=== PATIENT | male | born 1950 | race Caucasian/White ===

== ENCOUNTER 2016-03-22 08:00 | Inpatient (IN) | payer OTHER ==
[2016-04-15 09:44] VITALS: BMI 33.6
[2016-04-22] MEDS ORDERED: MELOXICAM 7.5 MG TAB PO ONE (05:00)
[2016-04-22] MEDS ORDERED: ACETAMINOPHEN TAB 500 MG TAB PO ONE (05:00)
[2016-04-22] MEDS ORDERED: ONDANSETRON 4 MG/2 ML VIAL IVP ONE (05:00)
[2016-04-22] MEDS ORDERED: TRANEXAMIC ACID 1,000 MG in SODIUM CHLORIDE 0.9% 100 ML IVPB ONE (05:00)
[2016-04-22] MEDS ORDERED: ceFAZolin 2 GM in SODIUM CHLORIDE 0.9% 100 ML IVPB ONE (05:00)
[2016-04-22] MEDS ORDERED: MIDAZOLAM 2 MG/2 ML VIAL IV PRN (05:56)
[2016-04-22] MEDS ORDERED: SCOPOLAMINE 1.5MG/72HR PATCH TRANSDERM ONE (05:56)
[2016-04-22] MEDS ORDERED: DEXAMETHASONE SOD PHOSPHATE 10 MG/ML 1 ML VIAL IV ONE (05:56)
[2016-04-22] MEDS ORDERED: HYDROmorphone 1 MG/ML 1 ML SYRINGE IVP PRN ×4 (05:56→10:22)
[2016-04-22 06:40] VITALS: RESP 16
[2016-04-22] MEDS: LACTATED RINGERS 1,000 ML IV SCH ×4 (07:18→20:00)
[2016-04-22] MEDS ORDERED: LIDOCAINE 1% 20 ML VIAL (10MG/ML) FOR IV START INTRADERMA ONE (07:19)
[2016-04-22] MEDS ORDERED: PROPOFOL 10 MG/ML 20 ML VIAL IV ONE (07:40)
[2016-04-22] MEDS ORDERED: ePHEDrine 50 MG/ML 1 ML AMP ONE (07:40)
[2016-04-22] MEDS ORDERED: NEOSTIGMINE 1 MG/ML 10 ML VIAL ONE (07:40)
[2016-04-22] MEDS ORDERED: SODIUM CHLORIDE 0.9% 100 ML BAG ONE (07:40)
[2016-04-22] MEDS ORDERED: TRANEXAMIC ACID 1,000 MG/10 ML VIAL ONE (07:40)
[2016-04-22] MEDS ORDERED: fentaNYL (PF) 50 MCG/ML 2 ML AMP ONE (07:40)
[2016-04-22] MEDS ORDERED: PHENYLEPHRINE-0.9% NACL SYG 1 MG/10 ML SYRINGE ONE (07:40)
[2016-04-22] MEDS ORDERED: ROCURONIUM BROMIDE 10 MG/ML 10 ML VIAL IV ONE (07:40)
[2016-04-22] MEDS ORDERED: ATROPINE SULFATE 0.4 MG/ML 1 ML VIAL ONE (07:40)
[2016-04-22] MEDS ORDERED: MIDAZOLAM 2 MG/2 ML VIAL ONE (07:40)
[2016-04-22] MEDS ORDERED: HYDROmorphone (PF) 1 MG/ML ONE (07:40)
[2016-04-22] MEDS ORDERED: GLYCOPYRROLATE 0.2 MG/ML 2 ML VIAL ONE (07:40)
[2016-04-22] MEDS ORDERED: LIDOCAINE 1% INJ 10MG/ML (20 ML MDV) ONE (07:40)
[2016-04-22] MEDS ORDERED: ceFAZolin 3,000 MG in SODIUM CHLORIDE 0.9% IRRIGATIO 3,000 ML IRRIGATION ONE (08:26)
[2016-04-22] MEDS: ROPIVACAINE 246.25 MG, EPINEPHrine 0.5 MG, KETOROLAC 30 MG, cloNIDine HCL/PF 80 MCG, WA... MISCELLANE ONE ×10 (08:32→09:34)
[2016-04-22] MEDS ORDERED: LACTATED RINGERS 1,000 ML IV ONE ×2 (08:33→10:00)
[2016-04-22] MEDS ORDERED: ROPIVACAINE 1,100 MG, SODIUM CHLORIDE 0.9% 330 ML MISCELLANE PRN ×2 (09:44)
--- NOTE | 2016-04-22 09:46 | P.ONQ ---
Anesthesiology Proc Note - PNB - Peripheral Nerve Block Performed Left Adductor Canal Indication: Acute Post-Operative Pain, Requested by physician (lisa) Sedation Type: Sedate with meaningful contact maintained Preparation: Sterile Dressing Position: Supine Catheter: Indwelling Needle Types: On-Q Needle Size: 100mm (4") Needle Gauge: 20 Technique: Ultrasound Injectate: 0.5% Ropivacaine (see comment for volume) (22cc) Blood Aspirated: No Pain Paresthesia on Injection Noted: No Resistance on Injection: Normal
[2016-04-22] MEDS ORDERED: hydrOXYzine PAMOATE 25 MG CAP PO PRN (10:22)
[2016-04-22] MEDS ORDERED: BISACODYL 10 MG SUPP RECTAL PRN (10:22)
[2016-04-22] MEDS ORDERED: NA PHOS,M-B/NA PHOS,DI-BA 133 ML ENEMA RECTAL PRN (10:22)
[2016-04-22] MEDS ORDERED: ACETAMINOPHEN TAB 325 MG TAB PO PRN (10:22)
[2016-04-22] MEDS ORDERED: NALOXONE 0.4 MG/ML 1 ML VIAL IV PRN (10:22)
[2016-04-22] MEDS ORDERED: HYDROcodone/APAP 5-325MG 1 EACH TAB PO PRN (10:22)
[2016-04-22] MEDS ORDERED: ONDANSETRON 4 MG/2 ML VIAL IVP PRN (10:22)
[2016-04-22] MEDS ORDERED: MAGNESIUM HYDROXIDE 2,400 MG/10 ML CUP PO PRN (10:22)
--- NOTE | 2016-04-22 11:18 | XR ---
EXAMINATION TYPE: XR knee limited LT DATE OF EXAM: 04/22/2016 11:00 AM COMPARISON: NONE HISTORY: Post op FINDINGS: There is a prosthetic knee in near anatomic alignment. There is soft tissue edema and emphysema. IMPRESSION: 1. Postoperative change. Appears in near-anatomic alignment
[2016-04-22] MEDS: HYDROcodone/APAP 5-325MG 1 EACH TAB PO PRN ×2 (15:57→21:57)
--- NOTE | 2016-04-22 16:22 | P.OP ---
Date of Procedure: 04/22/16 Procedure(s) Performed: PREOPERATIVE DIAGNOSIS: 1. Left knee severe osteoarthritis with genu varum 2. Previous surgery with retained hardware (2 plastic buttons, ligament augmentation device and 4 saran) POSTOPERATIVE DIAGNOSIS: Left knee severe osteoarthritis with genu varum 2. Previous surgery with retained hardware (2 plastic buttons, ligament augmentation device and 4 saran) OPERATION: 1. Left knee cemented total replacement arthroplasty. 2. Hardware removal (4 saran and 2 plastic buttons and ligament augmentation device) ANESTHESIA: Spinal ESTIMATED BLOOD LOSS: 100 ml. PRINCIPAL DATABASE DEVELOPER: Monique Tolliver PA-C (assistance with: patient positioning, retraction, exposure, hemostasis, leg positioning, implantation, irrigation, closure, dressing) COMPLICATIONS: None apparent. COMPONENTS IMPLANTED: Persona system from [employer] INDICATIONS: Mr. Marie is a 65-year-old male with a history of left knee osteoarthritis. Patient relates a history of remote athletic injury many years ago in which multiple ligament reconstructions were performed using saran and what sounds like cruciate ligament reconstruction. The operation of left knee replacement has been discussed at length in the office, as well as potential risks and complications. These are inclusive of, but not limited to: bleeding, infection, scarring, discomfort, blood vessel and nerve damage, need for further surgery, failure to relieve symptoms, persistence, recurrence, or worsening of problems, loosening, dislocation, wear, blood clot, pulmonary embolism, , gait dysfunction, stiffness, and other risks as discussed in the office. The patient elects to proceed and the consent form has been signed. PROCEDURE: The patient was taken to the operating room and positioned on the operating room table in the supine position. Anesthesia was initiated. Care was taken to make sure that all pressure points were adequately padded. The operative lower extremity was prepped and draped in the usual aseptic fashion using ChloraPrep. Ioban drape was used for the case and the patient received intravenous antibiotics within one hour of the incision. A pneumotourniquet and leg barnard were used for the case. The limb was exsanguinated with an Esmarch bandage and the tourniquet was inflated to 300 mmHg. Time-out was called confirming the patient's identity, side, procedure and administration of antibiotics. Well-healed medial parapatellar skin incision was noted from previous surgery. The standard midline incision was then created directly over the knee, carried down through skin and into the subcutaneous tissues and down to fascia. Full thickness subcutaneous medial flap was developed. Medial parapatellar arthrotomy was performed and the interior of the knee was inspected. There was end-stage osteoarthritis of the knee with a severe genu varum type deformity. The fat pad was excised and proximal medial release on the tibia was completed using meticulous dissection and a curved osteotome. The anterior cruciate ligament consisted of tissue plus a ligament augmentation device and was taken down. Note was made of significant attrition of the anterior and significant degenerative appearance of the posterior cruciate ligaments. Saran were noted in the previously noted positions based on x-rays. The anterior and lateral femoral saran were removed after dissection down to them using cautery. The saran on the lateral aspect of the tibial plateau and in the tibial tubercle were also identified and dissected out and removed. Scar tissue in the gutters was removed as necessary using cautery and 2 plastic ( polypropylene) suture buttons were noted and removed. The exposure was excellent. The knee was flexed 90 degrees and the patella was everted. A spot was chosen on the femur approximately 1 cm anterior to the posterior cruciate ligament insertion and an intramedullary hole was created within the femur. The intramedullary guide was then set to 5 degrees of valgus. The distal cutting block was attached and pinned into position. An appropriate amount of distal femoral resection was set. The oscillating saw was then used to make the distal femoral cut. This cut was confirmed to be flat with the flat end of an osteotome. The retractors were placed around the tibia and the tibial surface was addressed. The angle and depth of resection was adjusted using an extramedullary cutting guide. The guide had a built-in 3 degree posterior slope cut. Once the cutting guide was adjusted appropriately and in line with the axis of the tibia and confirmed to be in good position in relation to the second metatarsal and transmalleolar axis, the tibial cut was then created with protection of the posterior neurovascular structures and the collateral ligaments. The tibial cut surface was removed and sized. Femoral sizing was then accomplished using anterior referencing. Care was taken to analyze the posterior condyles for signs of deficiency or severe wear, and adjustments to the guide were made, as appropriate. 3 degree external rotation pins were placed. The cutting jig for the femur was applied to these pins. The planned cuts were further analyzed prior to performing them with the oscillating saw. No femoral notching was produced. Bone fragments were removed and the cut surfaces were finished, as necessary, with a reciprocating saw. Spacer block technique was then used to confirm that the flexion and extension gaps were equal. Soft tissue releases and adjustment of the tibial and/or femoral cuts were made, as necessary, until the gaps were equal. This included release of the posterior cruciate ligament, which was tight in this patient and , if left unreleased, would have resulted in poor kinematics and possibly early loosening. The femur was then further finished for a posterior cruciate ligament substituting component. Patellar resurfacing was performed using a reamer. The size of the required patellar component was estimated and the patellar surface was then reamed down to a residual thickness which would recreate the [place] thickness with the component. The placement of the patellar component was influenced by the degree of patellar subluxation, if any, noted on the preoperative x-rays. Prior to placing trial components, anesthetic solution consisting of ropivicaine with epinephrine, ketorolac, and clonidine was injected carefully and methodically in a grid pattern using aspiration technique into the soft tissue around the knee circumferentially, starting with the deeper tissues first and progressing to fascia, and then finally the skin/subcutaneous tissue. Particular care was taken when injecting the posterior capsule. The trial components were inserted. The tibial tray was allowed to self center and the patella was noted to track very well. The position of the tibial component was marked and the tibia was then finished for a stemmed tibial component. Cement was mixed on the back table and applied to the final components. Trial components were removed and the cut surfaces of the bone were pulse lavaged thoroughly and dried. Cement was then applied to the tibial surface and pressurized into the surface using finger pressurization technique. The tibial component was then applied and excess cement was removed after it was impacted securely and noted to be flush with the cut surface. In similar fashion, the cement was applied to the cut femoral surface, pressurized in using finger pressurization and the component was impacted into place. Excess cement was removed. The polyethylene spacer was then implanted and locked into position. The patellar component was then applied in similar technique and a patellar clamp was used to hold the patella in place as the cement hardened. Once the cement had fully hardened, the knee was reinspected. Any other cement extrusion was removed and final kinematic testing showed range of motion from 0 to 130 degrees with excellent stability, both medially and laterally and appropriate alignment of the leg. Patellar tracking was excellent. The knee was then thoroughly pulse lavaged with normal saline. The tourniquet was deflated and hemostasis was obtained with electrocautery and IV tranexamic acid, 1 g given prior to inflation of the tourniquet and another gram given at the time of closure. Closure was with #2 Ethibond in the fascia and supplemented with #2 Quill, 2-0 Vicryl suture was used for the subcutaneous tissues and 3-0 Quill for the skin. Dermabond/Steri-Strips were then applied. A lightly compressive dressing was applied using Webril and an Ladarius wrap. The patient was then transferred to stretcher and taken to the recovery room in stable condition. Sponge and needle counts were correct.
[2016-04-22] MEDS: ASPIRIN 325 MG TAB PO SCH (19:44)
[2016-04-22] MEDS ORDERED: VALSARTAN 160 MG TAB PO SCH (21:00)
[2016-04-22] MEDS ORDERED: SENNOSIDES-DOCUSATE SODIUM 1 EACH TAB PO SCH (21:00)
[2016-04-22] MEDS ORDERED: ATORVASTATIN 40 MG TAB PO SCH (21:00)
[2016-04-22] MEDS: ceFAZolin 2 GM in SODIUM CHLORIDE 0.9% 100 ML IVPB SCH (21:51)
[2016-04-23] MEDS: ceFAZolin 2 GM in SODIUM CHLORIDE 0.9% 100 ML IVPB SCH (04:12)
[2016-04-23] MEDS: LACTATED RINGERS 1,000 ML IV SCH (04:15)
[2016-04-23] MEDS: HYDROcodone/APAP 5-325MG 1 EACH TAB PO PRN ×2 (05:18→10:26)
[2016-04-23 07:27] VITALS: BP 129/60; PULSE 70; TEMP 97.8
[2016-04-23 08:13] LABS: Basophils % (A) 0 %; CH 31.8; CHCM 34.6; Eosinophils % (A) 0 %; HCT 37.7 % (39.0-53.0); HDW 2.84; HGB 12.8 gm/dL (13.0-17.5); Luc # (Auto) 0.14; Luc % (Auto) 2; Lymphocytes # (A) 1.6 k/uL (1.0-4.8); Lymphocytes % (A) 19 %; MCH 31.4 pg (25.0-35.0); MCV 92.2 fL (80.0-100.0); Mean Platelet Volume 8.6; Monocytes # (A) 0.5 k/uL (0-1.0); Monocytes % (A) 6 %; Neutrophils # (A) 6.2 k/uL (1.3-7.7); Neutrophils % (A) 73 %; RBC 4.09 m/uL (4.30-5.90); WBC 8.5 k/uL (3.8-10.6); WBC (Perox) 8.96
--- NOTE | 2016-04-23 08:23 | P.PN ---
Progress Note - Text The patient is status post left adductor canal catheter placement. The catheter was placed for postoperative pain control, status post total left arthroplasty. Ropivacaine 0.2% is infusing at 8 mLs per hour. The patient has no complaints of left lower extremity numbness or weakness. Patient's VAS score is 2-10. Assessment: Patient's adductor canal catheter is in place and working appropriately. Plan: continue infusion and adjust it as needed.
[2016-04-23] MEDS: ASPIRIN 325 MG TAB PO SCH (08:24)
[2016-04-23] MEDS ORDERED: MELOXICAM 7.5 MG TAB PO SCH (09:00)
--- NOTE | 2016-04-23 09:32 | P.DS ---
Providers Date of admission: 04/22/16 06:32 Expected date of discharge: 04/23/16 Attending physician: Raphael Jordan Consults: 04/22/16 10:22 Consult Physician Routine Consulting Provider: Mason Hanson Consult Reason/Comments: medical management Do you want consulting provider notified?: Yes Primary care physician: Mason Hanson - Discharge Diagnosis(es) (1) S/P total knee arthroplasty Patient was admitted to the OR on 04/22/2016 to undergo left total knee arthroplasty. He had failed conservative measures as an outpatient and desired to proceed with elective surgery after given informed consent. He underwent the above procedure which he tolerated well without complication. His postoperative hospital course has remained without complication. On day of discharge he desires discharge. On day of discharge he is afebrile, vital signs stable, labs within acceptable range, wound is benign, neurovascular status intact, calf is soft and nontender, abdomen is soft and nontender. On day of discharge he is denying new complaints including numbness, tingling, weakness, abdominal pain. He is tolerating by mouth meds and diet, voiding without difficulty and positive flatus. Review of systems is negative for fever , chills, chest pain, shortness breath, nausea, vomiting, dizziness, headaches, slurred speech, calf pain or other. Current Visit: Yes Status: Acute Procedures: Total knee arthroplasty Patient Condition at Discharge: Good Plan - Discharge Summary New Discharge Prescriptions: Aspirin 325 mg PO BID #120 tab HYDROcodone/APAP 5-325MG [Bu[place] 5] 1 - 2 each PO Q4-6H PRN #90 tab PRN Reason: Pain Sennosides-Docusate Sodium [Senokot-S] 1 tab PO BID #60 tablet Discharge Medication List Aspirin [Adult Low Dose Aspirin EC] 81 mg PO DAILY 04/15/16 [History] Atorvastatin [Lipitor] 40 mg PO HS 04/15/16 [History] Gluc/Freeman-MSM#1/C/Hung/Tony/Bor [Glucosamine-Chondroitin Tablet] 1 tab PO DAILY 04/15/16 [History] Meloxicam [Mobic] 7.5 mg PO BID 04/15/16 [History] Multivitamins, Thera [Multivitamin] 1 tab PO DAILY 04/15/16 [History] Naproxen Sodium [Aleve] 220 mg PO Q12HR 04/15/16 [History] Psyllium Husk (with Sugar) [Metamucil Powder] 2 tsp PO DAILY 04/15/16 [History] Valsartan [Diovan] 160 mg PO HS 04/15/16 [History] Aspirin 325 mg PO BID #120 tab 04/22/16 [Rx] HYDROcodone/APAP 5-325MG [Bu[place] 5] 1 - 2 each PO Q4-6H PRN #90 tab 04/22/16 [Rx] Sennosides-Docusate Sodium [Senokot-S] 1 tab PO BID #60 tablet 04/22/16 [Rx] Follow up Appointment(s)/Referral(s): Raphael Jordan MD [STAFF PHYSICIAN] - 2 Weeks Mason Hanson MD [Primary Care Provider] - 1 Week Ambulatory/Diagnostic Orders: Continuous Passive Motion (CPM) Machine [DME.AMB1] Time Frame: 3 Weeks, Facility : [facility], Location: Case Management Activity/Diet/Wound Care/Special Instructions: May shower after 2 days if no drainage. May bear wt as tolerated. CPM 5-6 hours daily. Discharge Disposition: HOME WITH HOME HEALTH SERVICES
--- NOTE | 2016-04-23 11:12 | P.CONS ---
History of Present Illness - Reason for Consult Consult date: 04/22/16 Medical management Requesting physician: Raphael Jordan - Chief Complaint Left knee pain - History of Present Illness Patient is a 65-year-old white male with medical history significant for left knee severe osteoarthritis that did not respond to conservative medical treatment as an outpatient. Patient presented to the hospital for elective left total knee arthroplasty. Patient tolerated procedure well. Patient is seen on the surgical unit where he is postop day #1. Patient is doing well. Denies chills, nausea, vomiting, shortness of breath, chest pain, abdominal pain , numbness or tingling. Left knee incision pain controlled. Patient is tolerating a regular diet. Palma catheter has just been removed and patient is due to void. Patient has been up ambulating. Afebrile. Hemodynamically stable. Past Medical History Past Medical History: Hyperlipidemia, Hypertension, Osteoarthritis (OA) Additional Past Medical History / Comment(s): PVC's, hemorrhoids, History of Any Multi-Drug Resistant Organisms: None Reported Past Surgical History: Adenoidectomy, Appendectomy, Heart Catheterization, Hernia Repair, Orthopedic Surgery, Tonsillectomy Additional Past Surgical History / Comment(s): left arm bicep surgery, left knee arthroscopy, Past Anesthesia/Blood Transfusion Reactions: Family History of Problems w/ Anesthesia, Motion Sickness Additional Past Anesthesia/Blood Transfusion Reaction / Comm: dad- diff waking up Past Psychological History: No Psychological Hx Reported Smoking Status: Never smoker Past Alcohol Use History: Occasional Past Drug Use History: None Reported - Past Family History Sister(s) Family Medical History: Cancer Medications and Allergies Home Medications Medication Instructions Recorded Confirmed Type Aspirin [Adult Low Dose Aspirin EC] 81 mg PO DAILY 04/15/16 04/22/16 History Atorvastatin [Lipitor] 40 mg PO HS 04/15/16 04/22/16 History Gluc/Freeman-MSM#1/C/Hung/Tony/Bor 1 tab PO DAILY 04/15/16 04/22/16 History [Glucosamine-Chondroitin Tablet] Meloxicam [Mobic] 7.5 mg PO BID 04/15/16 04/22/16 History Multivitamins, Thera [Multivitamin] 1 tab PO DAILY 04/15/16 04/22/16 History Naproxen Sodium [Aleve] 220 mg PO Q12HR 04/15/16 04/22/16 History Psyllium Husk (with Sugar) 2 tsp PO DAILY 04/15/16 04/22/16 History [Metamucil Powder] Valsartan [Diovan] 160 mg PO HS 04/15/16 04/22/16 History Allergies Allergy/AdvReac Type Severity Reaction Status Date / Time No Known Allergies Allergy Verified 04/22/16 06:42 Physical Exam Vitals: Vital Signs Temp Pulse Pulse Resp BP Pulse Ox 04/23/16 07:00 97.8 F 70 16 129/60 95 04/23/16 02:00 98.0 F 71 16 105/50 93 L 04/22/16 19:58 98.4 F 75 16 116/56 93 L 04/22/16 13:30 85 136/81 04/22/16 13:15 96 139/77 04/22/16 13:00 87 133/77 04/22/16 12:45 86 130/73 04/22/16 12:30 86 143/83 04/22/16 12:15 92 138/77 04/22/16 12:00 92 147/77 04/22/16 11:45 82 144/77 04/22/16 11:30 97.6 F 84 16 141/76 94 L 04/22/16 11:00 80 16 138/79 98 04/22/16 10:45 83 16 135/72 100 04/22/16 10:29 83 16 139/80 100 04/22/16 10:14 97.4 F L 88 16 127/64 99 Intake and Output 04/22/16 04/23/16 04/23/16 22:59 06:59 14:59 Intake Total 750 800 Output Total 2575 500 300 Balance -1825 300 -300 Intake: IV 400 800 Lactated Ringers 1,000 ml 400 800 @ 100 mls/hr IV .Q10H [facility] Rx#:[id number] Oral 350 Output: Urine 2575 500 300 Uretheral (Palma) 800 500 300 Other: Voiding Method Indwelling Catheter GENERAL: Pt awake and alert, well-appearing, well-nourished, and in no acute distress. HEAD: Atraumatic, normocephalic. EYES: Pupils equal, round, and reactive to light, extraocular movements intact, sclera anicteric, conjunctiva are normal. ENT: Moist mucous membranes. Tongue smooth, pink, no lesions, protrudes in midline. NECK:Normal range of motion, supple without lymphadenopathy or JVD. Thyroid midline, small and firm without palpable masses. LUNGS: Breath sounds clear to auscultation bilaterally. No wheezes, rales, or rhonchi. HEART: Heart S1, S2, no S3 or S4. Regular rate and rhythm. No murmurs, rubs or gallops. ABDOMEN: Soft, nontender, nondistended, normoactive bowel sounds. No guarding, no rebound. No masses or organomegaly appreciated. EXTREMITIES: 2+ peripheral pulses. No edema. No calf tenderness. Left knee incision dry and intact. NEUROLOGICAL: Pt oriented x 3. Cranial nerves II through XII grossly intact. Strength and sensation grossly intact. PSYCH: Normal mood, normal affect. SKIN: Warm, dry, intact. Normal turgor. No rashes or lesions. Results CBC & Chem 7: 04/23/16 07:08 Labs: Abnormal Lab Results - Last 24 Hours (Table) 04/23/16 Range/Units 07:08 RBC 4.09 L (4.30-5.90) m/uL Hgb 12.8 L (13.0-17.5) gm/dL Hct 37.7 L (39.0-53.0) % Assessment and Plan Plan: Impression and plan: 1. Severe left knee osteoarthritis status post total left knee arthroplasty on 04/22/2016. Continue surgical management by orthopedic service. 2. Anemia, suspect from minimal postop bleeding and possible hemodilution. Hemoglobin 12.8. 3. Hyperlipidemia. Continue Lipitor. 4. Hypertension. Continue Diovan. Continue to monitor patient. Continue current medications. Continue supportive treatment and pain management. Continue follow-up with orthopedic service. From a medical standpoint, patient is stable for discharge when cleared by orthopedic service. Patient will follow up with Dr. Hanson in one week after discharge. The above impression and plan have been discussed and directed by Dr. Hanson. Tanya CANTU acting as scribe for Dr. Hanson.
[2016-04-23] MEDS ORDERED: MULTIVITAMINS, THERA 1 EACH TAB PO SCH (12:00)
[2016-04-23] MEDS ORDERED: ceFAZolin 2 GM in SODIUM CHLORIDE 0.9% 100 ML IVPB SCH (18:00)
== END 2016-04-23 13:20 | disposition home health service (06) | DRG 470 ==
LOC: 2ORMAIN 04-22 06:32 → 3SUR 04-22 10:13
PROVIDERS: ADMIT Orthopaedic Surgery; ATTEND Orthopaedic Surgery
PROC: 0SRD0J9 Replacement of Left Knee Joint with Synthetic Substitute, Cemented, Open Approach (ICD-10-PCS; principal; 2016-04-22 08:00)
DX: M17.12 Unilateral primary osteoarthritis, left knee (principal); I10 Essential (primary) hypertension; Z79.82 Long term (current) use of aspirin; Z79.899 Other long term (current) drug therapy; E78.5 Hyperlipidemia, unspecified; M21.162 Varus deformity, not elsewhere classified, left knee
CPT/HCPCS: 85025; 88300

== ENCOUNTER → 2016-04-15 | Outpatient (CLI) | payer OTHER ==
[2016-04-15 14:10] LABS: INR 1.2 (<1.1); Partial Thromboplastin Time 26.3 sec (22.0-30.0); Prothrombin Time 11.5 sec (9.0-12.0)
[2016-04-15 14:15] LABS: Basophils % (A) 0 %; CH 31.6; Eosinophils # (A) 0.2 k/uL (0-0.7); Eosinophils % (A) 4 %; HCT 46.4 % (39.0-53.0); HDW 2.85; HGB 15.6 gm/dL (13.0-17.5); Luc # (Auto) 0.13; Luc % (Auto) 2; Lymphocytes # (A) 2.1 k/uL (1.0-4.8); Lymphocytes % (A) 37 %; MCH 30.4 pg (25.0-35.0); MCHC 33.5 g/dL (31.0-37.0); MCV 90.8 fL (80.0-100.0); Mean Platelet Volume 8.5; Monocytes # (A) 0.4 k/uL (0-1.0); Monocytes % (A) 6 %; Neutrophils # (A) 2.8 k/uL (1.3-7.7); Neutrophils % (A) 50 %; RBC 5.12 m/uL (4.30-5.90); RDW 12.5 % (11.5-15.5); WBC 5.6 k/uL (3.8-10.6); WBC (Perox) 5.35
[2016-04-15 14:31] LABS: ALT 63 U/L (21-72); AST 59 U/L (17-59); Alkaline Phosphatase 81 U/L (38-126); Anion Gap 13 mmol/L; Blood Urea Nitrogen 17 mg/dL (9-20); Calcium 9.4 mg/dL (8.4-10.2); Carbon Dioxide 28 mmol/L (22-30); Chloride 105 mmol/L (98-107); Glucose 111 mg/dL (74-99); Non-African American GFR(MDRD) >60 (>60 ml/min/1.73 sqM); Potassium 4.2 mmol/L (3.5-5.1); Sodium 146 mmol/L (137-145); Total Bilirubin 1.4 mg/dL (0.2-1.3); Total Protein 7.2 g/dL (6.3-8.2)
[2016-04-15 17:39] LABS: Appearance,Urine Clear (Clear); Bilirubin,Urine Negative (Negative); Glucose,Urine (UA) Negative (Negative); Ketones,Urine 1+ (Negative); Leukocyte Esterase,Urine Negative (Negative); Nitrite,Urine Negative (Negative); PH, Urine 5.5 (5.0-8.0); Protein,Urine Negative (Negative); Specific Gravity,Urine 1.017 (1.001-1.035); UA Billing (MACRO vs. MICRO) CHEM; Urobilinogen,Urine <2.0 mg/dL (<2.0)
== END | disposition home or self-care (01) ==
LOC: LABPAT 13:26
PROVIDERS: ATTEND Orthopaedic Surgery
DX: Z01.812 Encounter for preprocedural laboratory examination (principal); Z01.810 Encounter for preprocedural cardiovascular examination
CPT/HCPCS: 80053; 81003; 85025; 85610; 85730; 87070

== ENCOUNTER 2016-09-13 21:15 | Emergency (ER) | payer OTHER ==
--- NOTE | 2016-09-13 21:53 | ED ---
Lower Extremity Injury HPI - General Chief Complaint: Extremity Injury, Lower Stated Complaint: Fell/knee pain Time Seen by Provider: 09/13/16 21:31 Source: patient Mode of arrival: ambulatory Limitations: no limitations - History of Present Illness Initial Comments: Patient is a 65-year-old male with medical history significant for total right knee arthroplasty in March of this year presenting to the emergency department with complaints of right knee pain. Patient states he was walking down a muddy hill around 3:30 PM this afternoon when he slipped and bend his knee backwards to the point where he could feel his heel and his back. Patient states he felt a pop. The patient states she was able to ambulate immediately after the injury but as the day progressed his right knee pain increased making it more difficult to put weight on his right lower extremity. Patient states he took Motrin at 3:30 and applied ice. Patient is currently complaining of a sharp, throbbing pain primarily to the medial aspect of the right knee, exacerbated with movement. No history of recent illness, fevers, nausea, vomiting, shortness of breath, chest pain, abdominal pain, numbness or tingling. - Related Data Home Medications Medication Instructions Recorded Confirmed Aspirin [Adult Low Dose Aspirin EC] 81 mg PO DAILY 04/15/16 04/22/16 Atorvastatin [Lipitor] 40 mg PO HS 04/15/16 04/22/16 Glucosam/Freeman-Msm1/C/Hung/Bosw 1 tab PO DAILY 04/15/16 04/22/16 [Glucosamine-Chondroitin Tablet] Meloxicam [Mobic] 7.5 mg PO BID 04/15/16 04/22/16 Multivitamins, Thera [Multivitamin] 1 tab PO DAILY 04/15/16 04/22/16 Naproxen Sodium [Aleve] 220 mg PO Q12HR 04/15/16 04/22/16 Psyllium Husk (with Sugar) 2 tsp PO DAILY 04/15/16 04/22/16 [Metamucil Powder] Valsartan [Diovan] 160 mg PO HS 04/15/16 04/22/16 Previous Rx's Medication Instructions Recorded Aspirin 325 mg PO BID #120 tab 04/22/16 HYDROcodone/APAP 5-325MG [Dyer 5] 1 - 2 each PO Q4-6H PRN #90 tab 04/22/16 Sennosides-Docusate Sodium 1 tab PO BID #60 tablet 04/22/16 [Senokot-S] HYDROcodone/APAP 5-325MG [Dyer 1 - 2 tab PO Q4HR PRN #20 tab 09/13/16 5-325] Allergies Allergy/AdvReac Type Severity Reaction Status Date / Time No Known Allergies Allergy Verified 09/13/16 21:28 Review of Systems ROS Statement: Those systems with pertinent positive or pertinent negative responses have been documented in the HPI. ROS Other: All systems not noted in ROS Statement are negative. Past Medical History Past Medical History: Hyperlipidemia, Hypertension, Osteoarthritis (OA) Additional Past Medical History / Comment(s): PVC's, hemorrhoids, History of Any Multi-Drug Resistant Organisms: None Reported Past Surgical History: Adenoidectomy, Appendectomy, Heart Catheterization, Hernia Repair, Orthopedic Surgery, Tonsillectomy Additional Past Surgical History / Comment(s): left arm bicep surgery, left knee arthroscopy, Past Anesthesia/Blood Transfusion Reactions: Family History of Problems w/ Anesthesia, Motion Sickness Additional Past Anesthesia/Blood Transfusion Reaction / Comment(s): dad- diff waking up Past Psychological History: No Psychological Hx Reported Smoking Status: Never smoker Past Alcohol Use History: Occasional Past Drug Use History: None Reported - Past Family History Sister(s) Family Medical History: Cancer General Exam Limitations: no limitations General appearance: alert, in no apparent distress Head exam: Present: atraumatic, normocephalic, normal inspection Eye exam: Present: normal appearance. Absent: scleral icterus, conjunctival injection, periorbital swelling, periorbital tenderness ENT exam: Present: mucous membranes moist, normal external ear exam Neck exam: Present: normal inspection, full ROM. Absent: tenderness, lymphadenopathy Respiratory exam: Present: normal lung sounds bilaterally. Absent: respiratory distress, wheezes, rales, rhonchi, stridor Cardiovascular Exam: Present: regular rate, normal rhythm, normal heart sounds. Absent: systolic murmur, diastolic murmur, rubs, gallop, clicks GI/Abdominal exam: Present: soft, normal bowel sounds. Absent: distended, tenderness Left Upper Leg exam: Present: normal inspection, full ROM. Absent: tenderness, swelling Knee exam: Present: tenderness, swelling, effusion. Absent: full ROM, abrasion , laceration, full knee extension Lower Leg exam: Present: normal inspection, full ROM. Absent: tenderness, swelling Ankle exam: Present: normal inspection, full ROM. Absent: tenderness, swelling Foot/Toe exam: Present: normal inspection, full ROM. Absent: tenderness, swelling Neurovascular tendon exam: Present: no vascular compromise. Absent: motor deficit, sensory deficit, tendon deficit, extremity cold to touch, foot drop, significant pain with passive ROM of distal joint Gait: not tested/not observed Neurological exam: Present: alert, oriented X3, other (No focal deficits noted) Psychiatric exam: Present: normal affect, normal mood Skin exam: Present: warm, dry, intact, normal color Course Vital Signs 09/13/16 21:24 Temperature 97.6 F Pulse Rate 74 Respiratory 20 Rate Blood Pressure 142/78 O2 Sat by Pulse 96 Oximetry Medical Decision Making - Medical Decision Making Left knee joint effusion and anterior soft tissue swelling. No evidence of fracture. Patient placed in knee immobilizer. Provided prescription for pain medication. Patient instructed to follow-up with Dr. Jordan on Friday. Patient already has crutches. Patient agrees to treatment plan. Discharge instructions and return parameters reviewed. - Radiology Data Radiology results: report reviewed X-ray left knee: There is knee joint effusion and anterior soft tissue swelling. There is a knee prosthesis. Components are in anatomic position. No evidence of fracture. As read by radiologist Dr. Patterson. Disposition Clinical Impression: Sprain of left knee, Effusion of left knee Disposition: HOME SELF-CARE Condition: Good Instructions: Knee Sprain (ED) Additional Instructions: Avoid activity that causes pain Ice 20 minutes 4 times a day usually for 2-3 days Use knee immobilizer to provide support. Keep elevated as much as possible 24-48 hours. Continue Motrin and Dyer as needed for pain. and opiates. Return to the emergency department with symptoms of increased swelling, pain, numbness, tingling, or foot feeling cold to touch. Follow-up with Dr. Jordan on Friday. Prescriptions: HYDROcodone/APAP 5-325MG [Dyer 5-325] 1 - 2 tab PO Q4HR PRN #20 tab PRN Reason: Pain Referrals: Mason Hanson MD [Primary Care Provider] - 1-2 days Raphael Jordan MD [STAFF PHYSICIAN] - 1-2 days Time of Disposition: 22:19
--- NOTE | 2016-09-13 21:59 | XR ---
EXAMINATION TYPE: XR knee complete LT DATE OF EXAM: 09/13/2016 COMPARISON: 04/22/2016 HISTORY: Knee pain TECHNIQUE: 3 views FINDINGS: There is knee joint effusion and anterior soft tissue swelling. There is a knee prosthesis. Components are in anatomic position. I see no fracture. IMPRESSION: Soft tissue swelling and knee joint effusion. No fracture seen. No change in prosthesis p osition compared to old exam.
[2016-09-13] MEDS ORDERED: HYDROcodone/APAP 5-325MG 1 EACH TAB PO STA (22:14)
[2016-09-13 22:35] VITALS: BP 142/79; PULSE 65; RESP 16; TEMP 97.8
== END 2016-09-13 22:30 | disposition home or self-care (01) ==
LOC: EC 21:15
DX: S83.92XA Sprain of unspecified site of left knee, initial encounter (principal); E78.5 Hyperlipidemia, unspecified; I10 Essential (primary) hypertension; M19.90 Unspecified osteoarthritis, unspecified site; Z79.82 Long term (current) use of aspirin; Z79.899 Other long term (current) drug therapy; Z96.661 Presence of right artificial ankle joint; X50.1XXA Overexertion from prolonged static or awkward postures, initial encounter; Y93.01 Activity, walking, marching and hiking
CPT/HCPCS: 99283

== ENCOUNTER → 2017-02-11 | Outpatient (CLI) | payer MEDICARE ==
--- NOTE | 2017-02-11 07:45 | US ---
EXAMINATION TYPE: US liver DATE OF EXAM: 02/11/2017 COMPARISON: NONE CLINICAL HISTORY: 66-year-old male K76.89 OTHER SPECIFIED DISEASE OF LIVER, patient states liver cyst seen on outside MRI. TECHNIQUE: Multiple sonographic images of the right upper quadrant are obtained. FINDINGS: NURSING HOME SOCIAL WORKER NOTES: extensive midline bowel gas Liver Length: 14.2 cm Gallbladder Wall: 0.2 cm CBD: 0.3 cm Right Kidney: 11.7 x 5.1 x 5.1 cm Pancreas: Obscured by bowel gas Liver: Anechoic to hypoechoic lesion within the left hepatic lobe measuring 9 x 6 x 8 mm shows poste rior through transmission. Gallbladder: wnl Evidence for sonographic Casiano's sign: no CBD: mostly obscured by overlying bowel, and visualized short segment is within normal limits Right Kidney: No hydronephrosis IMPRESSION: A round 9 mm anechoic to hypoechoic lesion with through-transmission in the left hepatic lobe, suspec haley cyst. Internal echoes could be artifactual or could represent debris. Six-month follow-up recomme nded to reassess.
== END | disposition home or self-care (01) ==
LOC: RADUSWWP 06:57
PROVIDERS: ATTEND Family Medicine
DX: K76.9 Liver disease, unspecified (principal)
CPT/HCPCS: 76705

== ENCOUNTER → 2017-08-19 | Outpatient (CLI) | payer MEDICARE ==
--- NOTE | 2017-08-19 08:38 | US ---
EXAMINATION TYPE: US liver DATE OF EXAM: 08/19/2017 COMPARISON: 02/11/2017 CLINICAL HISTORY: R94.5 Abnormal results of liver function studies. 9 mm hypoechoic lesion seen on MR I, f/u to previous US EXAM MEASUREMENTS: Liver Length: 17.3 cm Gallbladder Wall: 0.2 cm CBD: 0.5 cm Right Kidney: 11.7 x 5.2 x 6.0 cm Pancreas: Obscured by bowel gas Liver: small 0.7 x 0.5 cm cyst upper margin Gallbladder: No stones seen Evidence for sonographic Casiano's sign: no CBD: wnl Right Kidney: No hydronephrosis or masses seen IMPRESSION: 1. Small hepatic cyst.
== END | disposition home or self-care (01) ==
LOC: RADUSWWP 07:39
PROVIDERS: ATTEND Family Medicine
DX: K76.89 Other specified diseases of liver (principal)
CPT/HCPCS: 76705

== ENCOUNTER → 2019-05-27 | Outpatient (CLI) | payer MEDICARE ==
--- NOTE | 2019-05-27 19:59 | CONS ---
CONSULTATION DATE OF SERVICE: 05/27/2019 68-year-old gentleman has been evaluated in the sleep center for possible obstructive sleep apnea-hypopnea syndrome. HISTORY OF PRESENT ILLNESS/SLEEP WAKE EVALUATION: SLEEP SCHEDULE: Patient's usual sleep schedule from 10 p.m. until 6:30/7 am. FALLING ASLEEP: Sometimes he has problems with falling asleep, although no TV in bedroom. DURING SLEEP: He sleeps on the side position usually with his , with loud snoring and witnessed episodes of stopped breathing during sleep. The patient also grinding his teeth. He wakes up from sleep up to 3 times with nocturia. DURING THE DAY/SLEEP WAKE EVALUATION: During the day, he takes up to 3 caffeinated beverages. [place] Sleepiness Scale is 3. Usually he does not take any naps. No history of hypnagogic hallucinations, sleep paralysis or cataplexy. PAST MEDICAL HISTORY: Positive for hypertension and hyperlipidemia. PAST SURGICAL HISTORY: Neck fusion, left knee replacement, appendectomy, left biceps repair. MEDICATIONS: Losartan, atorvastatin. SOCIAL HISTORY: Negative for smoking. Alcohol consumption occasional. FAMILY HISTORY: Hypertension, hyperlipidemia, arthritis. REVIEW OF SYSTEMS: Multiple awakenings from sleep with nocturia, snoring. PHYSICAL EXAM: A gentleman without distress. BP 122/83, HR 87, RR 16, height 5 feet 5 inches, weight 208 pounds. Body mass index 34.6, temperature 97.8, oxygen saturation at room air 97%. Oropharynx extremely low position of soft palate. Mallampati 4. Wide neck 17 and a half inch in circumference. ABDOMEN: Slightly obese. NECK: Supple, no JVD. Thyroid is not palpable. LUNGS: Clear to percussion and to auscultation. Good air exchange. No wheezing or rhonchi. HEART: S1, S2 regular. No murmurs, gallops, or rubs. ABDOMEN: Slightly obese. Soft and nontender. Bowel sounds are present. No organomegaly appreciated. EXTREMITIES: No clubbing or cyanosis. DAIRY INSPECTOR: Awake, alert, and oriented X3. Cranial nerves 2 to 7 intact. There is no fasciculation or atrophy. noted. No focal deficits observed. IMPRESSION: 1. Loud snoring, witnessed episodes of stopped breathing during sleep, multiple awakenings from sleep with nocturia,low position of soft palate, wide neck, obstructive sleep apnea-hypopnea syndrome. 2. Hypertension. 3. Hyperlipidemia. 4. Status post neck fusion. 5. Status post left knee replacement. 6. Status post appendectomy. 7. Status post left knee biceps repair. PLAN: 1. Polysomnography for evaluation of patient's breathing during sleep. 2. CPAP/BiPAP titration if sleep study confirms obstructive sleep apnea-hypopnea syndrome. 3. Preferable position during sleep on the side. 4. No driving if patient feels any sleepiness. 5. I will see patient for follow up visit to explain results of testing and following plan. Thank you very much for referring this patient for consultation. Sincerely, Omar Shah MD, PhD, FAASM Diplomat of [place] [employer] [place] [employer] Portal Architect of [facility] [place] MMODL / GILLIANN: [id number] /
== END | disposition home or self-care (01) ==
LOC: SLEEP 14:53
PROVIDERS: ATTEND Internal Medicine
DX: G47.33 Obstructive sleep apnea (adult) (pediatric) (principal); R35.1 Nocturia; I10 Essential (primary) hypertension; E78.5 Hyperlipidemia, unspecified; Z98.1 Arthrodesis status; Z96.652 Presence of left artificial knee joint; Z90.49 Acquired absence of other specified parts of digestive tract; Z98.890 Other specified postprocedural states; Z79.899 Other long term (current) drug therapy
CPT/HCPCS: 99211

== ENCOUNTER → 2019-10-21 | Outpatient (CLI) | payer MEDICARE ==
--- NOTE | 2019-10-22 02:14 | SFUN ---
SLEEP CENTER FOLLOW UP NOTE DATE OF SERVICE: 10/21/2019 A 68-year-old gentleman who has been followed in Sleep Center for treatment of obstructive sleep apnea-hypopnea syndrome. Recently, patient had polysomnogram which showed extremely severe obstructive sleep apnea-hypopnea syndrome with severe oxygen desaturation, and he had CPAP titration and received CPAP unit. Today is his first visit after he started to use CPAP equipment. Patient feels better with the machine. Sleeps better. Feels better during the day. [place] Sleepiness Scale today is 7. I checked patient's CPAP unit. Range of the pressure 5 to 14 with average pressure 13.3 cm of water. Usage is 29 out of 30 nights for more than 4 hours with average usage 7.6 hours per night. Apnea-hypopnea index reading for the last month 12.3 for the last 2 weeks 11.2, central apnea-hypopnea index 2.9. MEDICATIONS: Losartan, atorvastatin. PHYSICAL EXAMINATION: GENERAL: Patient in no distress. VITAL SIGNS: BP 144/88, HR 82, RR 16, weight 204, temperature 98.3, oxygen saturation on room air 96%. HEENT: PERRLA, EOMI. Oropharynx extremely low position of soft palate. Mallampati 4. NECK: Supple, no JVD. Thyroid is not palpable. LUNGS: Clear to percussion and to auscultation. Good air exchange. No wheezing or rhonchi. HEART: S1, S2 regular. No murmurs, gallops, or rubs. ABDOMEN: Obese. EXTREMITIES: No clubbing or cyanosis. CRUSHER OPERATOR: Awake, alert, and oriented X3. Cranial nerves 2 to 7 intact. There is no fasciculation or atrophy. noted. No focal deficits observed. IMPRESSION: 1. Extremely severe obstructive sleep apnea-hypopnea syndrome; apnea-hypopnea index 70.6 with oxygen desaturation to 75.4%. During diagnostic sleep study, oxygen level was below or equal to 88% for 35 minutes. The patient demonstrated good compliance with treatment, benefitting from treatment. Apnea-hypopnea index reduced to 12.3 during the reading for the last month. 2. Obesity. 3. Hypertension. 4. Hyperlipidemia. 5. Status post neck fusion. 6. Status post left knee replacement. 7. Status post appendectomy. 8. Status post left knee biceps repair. PLAN: 1. I changed the regimen of the pressure to 5-17 cm of water. 2. Patient will continue to use PAP equipment every night for the whole night. 3. Sleep hygiene with regular time in bed for at least 7-1/2 to 8 hours. 4. Precautions related to driving. No driving if feeling sleepiness. 5. I will maintain all necessary prescription for PAP supplies including mask, tube, filters. 6. Watching weight. 7. No driving if feeling sleepiness. 8. Follow-up visit in 3 months or earlier if patient has any problems. Thank you very much for allowing me to participate in management of your patient. Sincerely, Omar Shah MD, PhD, FAASM Diplomat of [employer] Communications Programmer of [facility] [place] MMODL / GILLIANN: [id number] /
== END | disposition home or self-care (01) ==
LOC: SLEEP 15:58
PROVIDERS: ATTEND Internal Medicine
DX: G47.33 Obstructive sleep apnea (adult) (pediatric) (principal); E66.9 Obesity, unspecified; I10 Essential (primary) hypertension; E78.5 Hyperlipidemia, unspecified; Z96.652 Presence of left artificial knee joint; Z98.1 Arthrodesis status; Z98.890 Other specified postprocedural states; Z99.89 Dependence on other enabling machines and devices

== ENCOUNTER → 2020-01-27 | Outpatient (CLI) | payer MEDICARE ==
--- NOTE | 2020-01-27 16:59 | SFUN ---
SLEEP CENTER FOLLOW UP NOTE DATE OF SERVICE: 01/27/2020 This patient is a 69-year-old gentleman who has been followed in Sleep Center for treatment of obstructive sleep apnea-hypopnea syndrome. The patient successfully continues to use CPAP equipment. He used to use it every night. No problems with the mask. He sleeps well. [place] Sleepiness Scale today is 2. I checked his CPAP unit. Range of the pressure is from 5 to 17. During his previous visit, I increased his maximal pressure. Average pressure 14.3. Usage is 30/30 nights for more than 4 hours, with average usage 8.2 hours per night. Leak is only 4 L/minute, which is perfect. Apnea-hypopnea index is 5.7 with central events 1.5. During previous visit it was 12.6. PHYSICAL EXAMINATION: GENERAL: A pleasant patient in no distress. VITAL SIGNS: BP 148/80, HR 70, RR 15, height 5 feet 5 inches, weight 209, BMI 34.7, temperature 98.3, oxygen saturation at room air 95%. HEENT: PERRLA, EOMI. Evaluation of oropharynx showed tongue protrudes midline. Extremely low position of soft palate. Mallampati IV. NECK: Supple. No JVD. Thyroid is not palpable. LUNGS: Clear to percussion and to auscultation. Good air exchange. No wheezing or rhonchi. HEART: S1, S2 regular. No murmurs, gallops or rubs. ABDOMEN: Soft, nontender. No organomegaly. Bowel sounds are heard in all four quadrants. EXTREMITIES: No clubbing or cyanosis. TOBACCO CLASSER: Awake, alert, and oriented X3. Cranial nerves 2 to 7 intact. There is no fasciculation or atrophy. noted. No focal deficits observed. IMPRESSION: 1. Severe obstructive sleep apnea-hypopnea syndrome; apnea-hypopnea index 17.6. The patient demonstrated 100% compliance with treatment and practically normalization of respiration on CPAP after pressure was increased during the previous visit, benefitting from treatment. 2. Hypertension. 3. Obesity. 4. Hyperlipidemia. 5. Status post neck fusion. 6. Status post left knee replacement. 7. Status post appendectomy. 8. Status post left knee biceps repair. PLAN: 1. Patient will continue to use PAP equipment every night for the whole night. 2. Sleep hygiene with regular time in bed for at least 7-1/2 to 8 hours. 3. Precautions related to driving. No driving if feeling sleepiness. 4. I will maintain all necessary prescription for PAP supplies including mask, tube, filters. 5. Watching weight. 6. No driving if feeling sleepiness. 7. Follow-up visit in 6 months or earlier if patient has any problems. Thank you very much for allowing me to participate in the management of your patient. Sincerely, Omar Shah MD, PhD, FAASM Diplomat of [employer] Navy Material Inspector of [facility] [place] MMODL / IJN: [id number] /
== END | disposition home or self-care (01) ==
LOC: SLEEP 10:11
PROVIDERS: ATTEND Internal Medicine
DX: G47.33 Obstructive sleep apnea (adult) (pediatric) (principal); I10 Essential (primary) hypertension; E66.9 Obesity, unspecified; E78.5 Hyperlipidemia, unspecified; Z98.1 Arthrodesis status; Z96.652 Presence of left artificial knee joint; Z90.49 Acquired absence of other specified parts of digestive tract; Z99.89 Dependence on other enabling machines and devices; Z98.890 Other specified postprocedural states

== ENCOUNTER → 2020-07-27 | Outpatient (CLI) | payer MEDICARE ==
--- NOTE | 2020-07-27 22:11 | SFUN ---
SLEEP CENTER FOLLOW UP NOTE DATE OF SERVICE: 07/27/2020 This 69-year-old gentleman has been followed in Sleep Center for treatment of obstructive sleep apnea-hypopnea syndrome. The patient continues to use his CPAP equipment every night for the whole night. No snoring with the machine. He sleeps well. [place] Sleepiness Scale is 1. I checked his CPAP unit. It is an AutoPAP. Range of pressure is 5 to 17, usage 30/30 nights for more than 4 hours, average usage 8.1 hours per night. Leak is 5 L/minute. Apnea-hypopnea index is 4.4, which is normal. MEDICATIONS: 1. Atorvastatin 40 mg once a day. 2. Valsartan 320 mg once a day. 3. Aspirin 81 mg once a day. PHYSICAL EXAMINATION: GENERAL: A pleasant patient in no distress. VITAL SIGNS: BP 138/69, HR 62, RR 12, height 5 feet 6 inches, weight 212.6, temperature 97.4, oxygen saturation at room air 98%. Body mass index 34.2. HEENT: PERRLA, EOMI. Evaluation of oropharynx showed tongue protrudes midline. Extremely low position of soft palate. Mallampati IV. NECK: Supple. No JVD. Thyroid is not palpable. LUNGS: Clear to percussion and to auscultation. Good air exchange. No wheezing or rhonchi. HEART: S1, S2 regular. No murmurs, gallops or rubs. ABDOMEN: Slightly obese. EXTREMITIES: No clubbing or cyanosis. OUTSIDE PLANT FIELD ENGINEER: Awake, alert, and oriented X3. Cranial nerves 2 to 7 intact. There is no fasciculation or atrophy. noted. No focal deficits observed. IMPRESSION: 1. Severe obstructive sleep apnea-hypopnea syndrome; apnea-hypopnea index 70.6. The patient demonstrated 100% compliance with treatment, benefitting from treatment. Normal respiration on CPAP therapy. 2. Mild obesity; body mass index 34.2. 3. Hypertension. 4. Hyperlipidemia. 5. Status post neck fusion. 6. Status post left knee replacement. 7. Status post appendectomy. 8. Status post left arm biceps repair. PLAN: 1. Continue losing weight. 2. Patient will continue to use PAP equipment every night for the whole night. 3. Sleep hygiene with regular time in bed for at least 7-1/2 to 8 hours. 4. Precautions related to driving. No driving if feeling sleepiness. 5. I will maintain all necessary prescription for PAP supplies including mask, tube, filters. 6. Follow-up visit in 6 months or earlier if patient has any problems. Thank you very much for allowing me to participate in the management of your patient. Sincerely, Omar Shah MD, PhD, FAASM Diplomat of [employer] [employer] Medicine Cutting Machine Offbearer of [facility] [place] MMODL / IJN: [id number] /
== END ==
LOC: SLEEP 10:40
PROVIDERS: ATTEND Internal Medicine
DX: G47.33 Obstructive sleep apnea (adult) (pediatric) (principal); E66.9 Obesity, unspecified; I10 Essential (primary) hypertension; E78.5 Hyperlipidemia, unspecified; Z98.1 Arthrodesis status; Z96.652 Presence of left artificial knee joint; Z90.49 Acquired absence of other specified parts of digestive tract; Z98.890 Other specified postprocedural states; Z68.34 Body mass index [BMI] 34.0-34.9, adult

== ENCOUNTER → 2021-02-14 | Outpatient (CLI) | payer MEDICARE ==
--- NOTE | 2021-02-14 11:25 | SFUN ---
SLEEP CENTER FOLLOW UP NOTE DATE OF SERVICE: 02/14/2021 This 70-year-old gentleman has been followed in Sleep Center for treatment of obstructive sleep apnea-hypopnea syndrome. The patient continues to use his CPAP equipment every night. No problems with the supplies. He sleeps well. [place] Sleepiness Scale is only 1, which is absolutely perfect. I checked CPAP unit. It is in automatic regimen. Range of the pressure is 5 to 17. Usage is 100% of nights for more than 4 hours, average 8 hours per night; great compliance. Leak is 8 L/minute, normal. Apnea-hypopnea index is 2.0; perfect. MEDICATIONS: 1. Atorvastatin 40 mg once a day. 2. Valsartan 320 mg once a day. 3. Aspirin 81 mg once a day. 4. Magnesium. 5. Multivitamins supplement. PHYSICAL EXAMINATION: GENERAL: Pleasant patient in no distress. VITAL SIGNS: BP 158/87, HR 61, RR 15, height 5 feet 5-1/4 inches, weight 218.2 pounds, which is 6 pounds more than during the previous visit. Body mass index 36.0. Temperature 97.1. Oxygen saturation at room air 97%. HEENT: PERRLA, EOMI, evaluation of oropharynx showed tongue protrudes midline. Extremely low position of soft palate; Mallampati IV. NECK: Supple, no JVD. Thyroid is not palpable. LUNGS: Clear to percussion and to auscultation. Good air exchange. No wheezing or rhonchi. HEART: S1, S2 regular. No murmurs, gallops, or rubs. ABDOMEN: Slightly obese. EXTREMITIES: No clubbing or cyanosis. FIELD HOCKEY AND LACROSSE COACH: Awake, alert, and oriented X3. Cranial nerves 2 to 7 intact. There is no fasciculation or atrophy. noted. No focal deficits observed. IMPRESSION: 1. Severe obstructive sleep apnea-hypopnea syndrome. Original AHI 70.6. Patient demonstrated great compliance with treatment. Normal aspiration on CPAP treatment, benefitting from treatment. 2. Hypertension. 3. Obesity. 4. Hyperlipidemia. 5. Status post neck fusion. 6. Status post total left knee replacement. 7. Status post appendectomy. 8. Status post left arm biceps repair. PLAN: 1. Patient will continue to use PAP equipment every night for the whole night. 2. Sleep hygiene with regular time in bed for at least 7-1/2 to 8 hours. 3. Precautions related to driving. No driving if feeling sleepiness. 4. I will maintain all necessary prescription for PAP supplies including mask, tube, filters. 5. Watching weight. 6. Follow-up visit in 6 months or earlier if patient has any problems. Thank you very much for allowing me to participate in the management of your patient. Sincerely, Omar Shah MD, PhD, FAASM Diplomat of [place] Sleep Medicine Board of [place] [employer] Medicine Invoicing Specialist of [facility] [place] MMODL / IJN: [id number] /
== END | disposition home or self-care (01) ==
LOC: SLEEP 10:04
PROVIDERS: ATTEND Internal Medicine
DX: G47.33 Obstructive sleep apnea (adult) (pediatric) (principal); I10 Essential (primary) hypertension; E66.9 Obesity, unspecified; E78.5 Hyperlipidemia, unspecified; Z98.890 Other specified postprocedural states; Z90.49 Acquired absence of other specified parts of digestive tract; Z96.652 Presence of left artificial knee joint

== ENCOUNTER → 2021-09-13 | Outpatient (CLI) | payer MEDICARE ==
--- NOTE | 2021-09-13 16:25 | P.PN ---
Subjective DATE: 09/13/2021 FOLLOW UP VISIT. Patient with obstructive sleep apnea hypopnea syndrome return to sleep center for follow-up visit. Patient is using PAP equipment every night for the whole night, getting PAP supplies in time. The patient does not have significant problems with the mask, PAP unit and humidification. [place] sleepiness scale is 2. I checked information from PAP unit. PAP unit pressure 517 average 12 cm H2O. Usage is 100 % for more then 4 hours, average 8 hours per night. Leak is 10 l/m, which is in acceptable range. Apnea Hypopnea Index is 2, which is normal. MEDICATIONS:1. Atorvastatin 40 mg once a day 2. Valsartan 320 mg once a day 3. Aspirin 81 mg once a day[] 4. Meloxicam 7.5 mg once a day[] During physical exam: GENERAL: A pleasant patient without any distress. VITAL SIGNS: BP143/78, HR 69, RR 16 , weight to 220.6, temperature 97.1, oxygen saturation at room air 95% . HEENT: PERRLA, EOMI.low position of soft palate, Mallapati 4 . NECK: Supple. No JVD. LUNGS: Clear to percussion and to auscultation. Good air exchange. No wheezing or rhonchi. HEART: S1, S2 regular. ABDOMEN: Soft and nontender.[] EXTREMITIES: No clubbing or cyanosis. 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 No focal deficit. Impressions: 1. Obstructive sleep apnea-hypopnea syndrome. Patient demonstrated great compliance with treatment, benefiting from treatment. 2. Hypertension[]. 3. Obesity. 4. Hyperlipidemia. 5. Status post neck fusion. 6. Status post left knee replacement. 7. Status post appendectomy]. Plan: 1. Continue using PAP equipment every night for the whole night. 2. To change air filter at least 1-2 times per month. 3. PAP unit should stay lower then position of the head. 4. Advised patient to remove all remaining water from humidifier canister daily and make it dry after each usage. Refill canister with fresh distilled water before each usage. 5. Sleep hygiene with regular time in bed for at least 8 hours. 6. Precautions related to driving. No driving if feel any sleepiness. 7. I will maintain prescription for PAP supplies including mask, tube, filters. 8. Follow up visit in 6 months or earlier if patient has any problems. 9. Watching weight. Thank you very much for allowing me to participate in the management of your patient. Omar Shah MD, PhD, FAASM. Diplomat of [place] [employer], Sleep Medicine Board by [place] [employer] Laboratory Assistant [facility] [place]
== END ==
LOC: SLEEP 15:29
PROVIDERS: ATTEND Internal Medicine
DX: G47.33 Obstructive sleep apnea (adult) (pediatric) (principal); I10 Essential (primary) hypertension; E66.9 Obesity, unspecified; E78.5 Hyperlipidemia, unspecified; Z98.1 Arthrodesis status; Z96.652 Presence of left artificial knee joint; Z90.49 Acquired absence of other specified parts of digestive tract; Z79.899 Other long term (current) drug therapy

== ENCOUNTER → 2022-07-18 | Outpatient (CLI) | payer MEDICARE ==
--- NOTE | 2022-07-18 12:06 | P.PN ---
Subjective DATE: 07/18/2022 FOLLOW UP VISIT. Patient with obstructive sleep apnea hypopnea syndrome return to sleep center for follow-up visit. Information from previous visit have been reviewed. Patient is using PAP equipment every night for the whole night, getting PAP supplies in time. The patient does not have significant problems with the mask, PAP unit and humidification. [place] sleepiness scale is 2. I checked information from PAP unit. PAP unit pressure 5-20, average 19.9 cm H2O. Usage is 100 % for more then 4 hours, average 8.8 hours per night. Leak is 22.5 l/m, which is in acceptable range. Apnea Hypopnea Index is high 19.4, which which improved comparing with the previous visit on apnea-hypopnea index was 35.4 and I increased CPAP pressure up from the maximal 17 cm of water to the maximal 20 cm of water. MEDICATIONS:1. Atorvastatin 40 mg once a day 2. Losartan 320 mg once a day 3. Gabapentin 200 mg twice a day During physical exam: GENERAL: A pleasant patient without any distress or wheelchair. VITAL SIGNS: BP 135/87, HR 62, RR 12 , weight 219, temperature 97.5, oxygen saturation at room air 97 % . HEENT: PERRLA, EOMI.low position of soft palate, Mallapati 4 . NECK: Supple. No JVD. LUNGS: Clear to percussion and to auscultation. Good air exchange. No wheezing or rhonchi. HEART: S1, S2 regular. ABDOMEN: Soft and nontender. Slightly obese EXTREMITIES: No clubbing or cyanosis. SLAB STRIPPER: Awake, alert, and oriented x3. Low paraplegia. Impressions: 1. Obstructive sleep apnea-hypopnea syndrome. Patient demonstrated 100% compliance with treatment. Apnea-hypopnea index increased to 19.4 with maximal level of AutoPAP up to 20 cm of water. 2. 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 Status post spinal surgery. 3. Hypertension. 4. Status post neck fusion. 5. Status post left knee replacement. 6. Status post appendectomy. Plan: 1. Pap titration for correction of patient respiration during sleep. Patient will need treatment with BiPAP. 2. Continue using PAP equipment every night for the whole night. 3. PAP unit should stay lower then position of the head. 4. Advised patient to remove all remaining water from humidifier canister daily and make it dry after each usage. Refill canister with fresh distilled water before each usage. 5. Sleep hygiene with regular time in bed for at least 8 hours. 6. Precautions related to driving. No driving if feel any sleepiness. 7. I will maintain prescription for PAP supplies including mask, tube, filters. 8. Following plan after reading Pap titration. 9. Watching and losing weight. Thank you very much for allowing me to participate in the management of your patient. Omar Shah MD, PhD, FAASM. Diplomat of [place] [employer], Sleep Medicine Board by [place] [employer] [facility] [place]
== END ==
LOC: SLEEP 11:15
PROVIDERS: ATTEND Internal Medicine
DX: G47.33 Obstructive sleep apnea (adult) (pediatric) (principal); G82.20 Paraplegia, unspecified; I10 Essential (primary) hypertension; R63.4 Abnormal weight loss; Z79.899 Other long term (current) drug therapy; Z90.49 Acquired absence of other specified parts of digestive tract; Z98.1 Arthrodesis status; Z99.89 Dependence on other enabling machines and devices; Z98.890 Other specified postprocedural states
CPT/HCPCS: 99212

== ENCOUNTER 2023-01-08 19:43 | Outpatient (CLI) | payer MEDICARE ==
--- NOTE | 2023-01-09 12:53 | P.PCN ---
Description of Procedure: CLINICAL: Titration with positive air pressure has been done for correction of respiratory abnormalities during sleep. DESCRIPTION OF PROCEDURE: The standard montage for clinical polysomnography included the electroencephalogram, the electrocardiogram, the mentalis surface electromyography and Lead II cardiography. The respiratory battery consisted of measurements of nasal /buccal air flow, pressure transducer measurements from the nose, thoracic and /or abdominal effort and intercostal surface electromyography. Video monitoring has been done to check for any parasomnia events. Nocturnal oxyhemoglobin saturations were obtained by finger oximetry. Step-mcelroy titration with positive airway pressure was utilized to control respiratory events. Raw data of sleep recording has been reviewed and is adequate. RESULTS: Sleep efficiency was decreased to 77.9 %. Latency to sleep onset was normal 22.5 minutes.]. Sleep architecture showed stage N1 was short %, Delta sleep was absent 0 %, REM sleep was significantly increased to 31.5 %. Heart rate was minimum 58 BPM, maximum 67 BPM, average 62 BPM. EMG showed 0 periodic limb movements per hour. PAP titration have been done with CPAP up to the pressure 14 cm H2O. Paticontinue to have respiratory abnormalities on CPAPched to BPAP. BPAP titrated up to 25/21 cm H2O. The best results were at the pressure 23/191. cm H2O. Apnea hypopnea index reduced to 1.6. IMPRESSION: 1. Obstructive sleep apnea hypopnea syndrome on controle with BPAP treatment. 2. No significant periodic limb movements have been documented. Please see other impressions from consultation. PLAN: 1. The patient will have treatment with positive air pressure equipment with the level of pressure AutoBPAP maximal inspiratory pressure 22, minimal expiratory pressure 10, pressure-support of 4 cm of water cH2O and should use it every night for the whole night. 2. Watching and losing weight. 3. Sleep hygiene with regular time in bed for at least 8 hours. 4. No driving if feeling any sleepiness. 5. I will see the patient for follow up visit to explain the results of the test, recommendations, check compliance with treatment and make any necessary adjustment related to mask fitting, pressure and humidification. Thank you very much for allowing me to participate in the management of your patient. Sincerely, Omar Shah MD, PhD, FAASM Diplomat of [place] [employer] Sleep Medicine Board of [place] [employer] [facility] [place]
== END 2023-01-09 06:15 | disposition home or self-care (01) ==
LOC: 3 N SLEEP 19:43
PROVIDERS: ATTEND Internal Medicine
DX: G47.33 Obstructive sleep apnea (adult) (pediatric) (principal)
CPT/HCPCS: 95811